=== PATIENT | male | born 1980 | race Caucasian/White ===

== ENCOUNTER 2024-10-17 06:19 | Day surgery (SDC) | payer OTHER, BC ==
[2024-10-17] MEDS ORDERED: Lactated Ringers 1,000 ML IV ONE (06:20)
[2024-10-17] MEDS ORDERED: Propofol 200 MG/20 ML SDV IV ONE (06:20)
[2024-10-17] MEDS: Lactated Ringers 1,000 ML IV SCH (06:54)
[2024-10-17] MEDS ORDERED: Propofol 200 MG/20 ML SDV ONE (07:19)
== END 2024-10-17 08:51 | disposition home or self-care (01) ==
LOC: DL.ENDO 06:19
PROVIDERS: ATTEND Internal Medicine Gastroenterology
DX: Z12.11 Encounter for screening for malignant neoplasm of colon (principal); F17.290 Nicotine dependence, other tobacco product, uncomplicated
CPT/HCPCS: 45378; J2003; J2704; J7120; S5010; 00812